=== PATIENT | male | born 1950 | race Caucasian/White ===

== ENCOUNTER 2023-04-16 06:07 | Day surgery (SDC) | payer OTHER ==
[~2023-04-16] VITALS: Ht 172.7 cm; Wt 74.6 kg
[~2023-04-16 06:07] MED LIST: AMLO5 PO; ATOR10 PO; D3-20002000 UNIT PO; ESCI10 PO; ESOM20 PO; KRILL OIL 3001 EACH PO; LANS30EC PO; LOSA25 PO; META800 PO; METF500 PO; MSM1000 MG PO; MULVITMIND PO; ROSU10TA PO
--- NOTE | 2023-04-16 06:35 | NUR ---
04/16/23 0635 Olya Vides CALL LIGHT WITHIN REACH. TETRACAINE IN AT 0630 IN RIGHT EYE AND PLEDGETT IN AT 0632
[2023-04-16 07:52] VITALS: BP 117/72
--- NOTE | 2023-04-16 07:59 | NUR ---
04/16/23 0759 WAQAR OLSON IV REMOVED. WNL. EMMANUEL WELL. CANNULA INTACT
== END 2023-04-16 08:09 | disposition home or self-care (01) ==
LOC: ORSCSDS 06:07
PROVIDERS: Student in an Organized Health Care Education/Training Program
PROC: 08RJ3JZ Replacement of Right Lens with Synthetic Substitute, Percutaneous Approach (ICD-10-PCS; principal; 2023-04-16 07:30)
DX: E11.36 Type 2 diabetes mellitus with diabetic cataract (principal); Z96.1 Presence of intraocular lens; I10 Essential (primary) hypertension; H40.059 Ocular hypertension, unspecified eye; Z79.84 Long term (current) use of oral hypoglycemic drugs; Z79.899 Other long term (current) drug therapy
CPT/HCPCS: 82947; J2001; J2250; J3010; J7040; V2632

== ENCOUNTER 2023-04-23 06:02 | Day surgery (SDC) | payer OTHER ==
[~2023-04-23] VITALS: Ht 172.7 cm; Wt 74.7 kg
--- NOTE | 2023-04-23 06:32 | NUR ---
04/23/23 0632 Genesis Snow TETRACAINE TO LEFT EYE AT 0630 PLEDGET TO LEFT EYE AT 0631 BY [email or web address].[email or web address]
[2023-04-23 07:57] VITALS: BP 103/74
--- NOTE | 2023-04-23 08:01 | NUR ---
04/23/23 0801 WAQAR OLSON IV REMOVED. WNL. CANNULA INTACT. EMMANUEL WELL
== END 2023-04-23 08:10 | disposition home or self-care (01) ==
LOC: ORSCSDS 06:02
PROVIDERS: Student in an Organized Health Care Education/Training Program
PROC: 08RJ3JZ Replacement of Right Lens with Synthetic Substitute, Percutaneous Approach (ICD-10-PCS; principal; 2023-04-23 07:30)
DX: E11.36 Type 2 diabetes mellitus with diabetic cataract (principal); H25.13 Age-related nuclear cataract, bilateral; H40.053 Ocular hypertension, bilateral; I10 Essential (primary) hypertension; Z79.84 Long term (current) use of oral hypoglycemic drugs; Z79.899 Other long term (current) drug therapy
CPT/HCPCS: 82947; J2001; J2250; J3010; J7040; V2632

== ENCOUNTER 2023-05-23 11:39 | Day surgery (SDC) | payer OTHER ==
[~2023-05-23] VITALS: Ht 172.7 cm; Wt 72.0 kg
[2023-05-23 13:54] VITALS: BP 113/68
--- NOTE | 2023-05-23 13:58 | NUR ---
05/23/23 135 WAQAR OLSON IV REMOVED W/O DIFF. EMMANUEL WELL. CANNULA INTACT.
== END 2023-05-23 14:15 | disposition home or self-care (01) ==
LOC: ORSCSDS 11:39
PROVIDERS: Surgery
PROC: 0DJD8ZZ Inspection of Lower Intestinal Tract, Via Natural or Artificial Opening Endoscopic (ICD-10-PCS; principal; 2023-05-23 13:00)
PROC: 0DB78ZX Excision of Stomach, Pylorus, Via Natural or Artificial Opening Endoscopic, Diagnostic (ICD-10-PCS; principal; 2023-05-23 13:00)
PROC: 0DB48ZX Excision of Esophagogastric Junction, Via Natural or Artificial Opening Endoscopic, Diagnostic (ICD-10-PCS; principal; 2023-05-23 13:00)
DX: Z12.11 Encounter for screening for malignant neoplasm of colon (principal); Z86.010 Personal history of colon polyps; K22.70 Barrett's esophagus without dysplasia; A63.0 Anogenital (venereal) warts; K64.4 Residual hemorrhoidal skin tags; K44.9 Diaphragmatic hernia without obstruction or gangrene; K21.9 Gastro-esophageal reflux disease without esophagitis; E11.9 Type 2 diabetes mellitus without complications; I10 Essential (primary) hypertension; Z79.899 Other long term (current) drug therapy; Z79.84 Long term (current) use of oral hypoglycemic drugs; Z87.891 Personal history of nicotine dependence
CPT/HCPCS: 43239; G0105; 82947; 88305; J2704; J7120